=== PATIENT | male | born 1975 | race Caucasian/White ===

== ENCOUNTER 2020-12-21 08:42 | Emergency (ER) | payer OTHER, SELFPAY ==
[2020-12-21 08:52] VITALS: BP 139/83; PULSE 95; RESP 19; TEMP 37.1; O2SAT 96; BMI 30.7
--- NOTE | 2020-12-21 09:01 | W.ED.NAVMDI ---
Documented by User: ELIDIA Jade 12/21/20 11:07 HPI - Nausea/Vomiting/Diarrhea General: Chief complaint: Abdominal Pain Stated complaint: STOMACH PAINS/DIARRHEA Time Seen by Provider: 12/21/20 08:45 History of Present Illness: HPI Narrative: Patient is a 45-year-old male comes to the ED with abdominal cramps and diarrhea. Symptoms started a little over 2 weeks ago. Patient says he had some bad food poisoning, and for about 5 days he had nausea vomiting and diarrhea. Since recovering from food poisoning incident he says he has had abdominal cramping pain and watery diarrhea. He has approximately 10-12 watery diarrhea BMs a day for the past 2 weeks. He denies any blood in the stool. He endorses having a lot of abdominal cramping pain that does get relieved after he has a bowel movement. Abdominal cramping is generalized and he has no localized abdominal pain says every time he eats something that goes right the room and he has a bowel movement immediately following. Denies any nausea, vomiting, fever, chills. Associated nausea: No Associated symtoms: Denies change in vision, chest pain, dysuria, fatigue, headache(s), nausea or palpitations Review of Systems Const: Denies: fever(s), chills or fatigue Eyes: Denies: change in vision or eye discomfort ENMT: Denies: throat pain, odynophagia, nasal discharge or nasal congestion Card: Denies: chest pain, palpitations, edema, swelling of feet/ankles, dyspnea on exertion or orthopnea Resp: Denies: dyspnea, productive cough or non-productive cough GI: Reports: abdominal pain (Abdominal cramping pain) and diarrhea; Denies: nausea, vomiting, constipation or hematochezia : Denies: flank pain, difficulty urinating, dysuria or hematuria Musc: Denies: neck pain, back pain or extremity swelling Skin/Breast: Denies: rash or new lesions Neuro: Denies: headache(s), numbness in extremities or weakness in extremities Physical Exam Const: COMMON NORMALS: no acute distress, patient oriented x3 and alert GENERAL APPEARANCE: cooperative and comfortable HENMT: COMMON NORMALS: normocephalic HEAD & SCALP: normocephalic MOUTH: Normal oral and palatal mucosa present THROAT: posterior oropharynx normal and uvula midline Eye: COMMON NORMALS: Equal, round and reactive pupils present PUPIL: Yes Equal, round and reactive pupils present Neck/C-Spine: COMMON NORMALS: supple GENERAL: Yes normal visual inspection Resp: COMMON NORMALS: normal respiratory effort, No retractions, No use of accessory muscles and clear to auscultation bilaterally AUSCULTATION: clear to auscultation bilaterally Cardio: COMMON NORMALS: regular rate, regular rhythm, S1 normal heart sound present, S2 normal heart sound present, No gallops present (Cardio), No clicks present (Cardio), No murmurs present (Cardio) and Peripheral pulses 2+ throughout RATE: regular rate RHYTHM: regular rhythm HEART SOUNDS: S1 normal heart sound present and S2 normal heart sound present PERIPHERAL PULSES: Peripheral pulses 2+ throughout GI: COMMON NORMALS: Soft to palpation, non-tender and no masses INSPECTION: Yes normal to inspection AUSCULTATION: Yes Hyperactive bowel sounds present PALPATION: Yes Soft to palpation : COMMON NORMALS: Yes no CVA tenderness BLADDER/KIDNEY EXAM: Yes no CVA tenderness Back/Pelvis: COMMON NORMALS: no CVA tenderness Extremity: COMMON NORMALS: normal to inspection Neuro: COMMON NORMALS: patient oriented x3 and moves all extremities SENSORIUM/ORIENTATION: Yes alert Skin: GENERAL SKIN EXAM: dry skin Course Vital Signs: Vital signs: Vital Signs Temperature 98.7 F 12/21/20 08:52 Pulse Rate 92 12/21/20 10:52 Respiratory Rate 16 12/21/20 10:52 Blood Pressure 105/71 12/21/20 10:52 Pulse Oximetry 95 12/21/20 10:52 MDM - Nausea/Vomiting/Diarrhea MDM Narrative: Medical decision making narrative: Patient is a 45-year-old male comes to the ED with abdominal cramping and diarrhea. Symptoms been going on for the past 2 weeks. Denies any fever, chills, nausea/vomiting. Patient appears in no acute distress or pain. He has hyperactive bowel sounds of the rest of exam is benign. White blood cell count 12.2, sodium level 129, blood glucose 255. Sodium correction level in light of hyperglycemia actually around 131-133. CT of abdomen pelvis showed colitis. Patient was given 1 L of IV fluids while here in the ED. He was also given p.o. Cipro and Flagyl here in the ED. He was diagnosed with colitis and hyponatremia. discharged home with a prescription for Flagyl, Cipro and dicyclomine. told to follow-up with his PCP in 7 to 10 days for reevaluation and to recheck sodium levels. Lab Data: Attestation: I reviewed the patient's lab results. Labs: Lab Results 12/21/20 12/21/20 12/21/20 08:58 08:58 10:09 WBC 12.2 10^3/uL H 10 ^3/uL (4.0-10.0) RBC 5.47 10^6/uL H 10 ^6/uL (4.1-5.3) Hgb 16.1 g/dL g/dL (11.7-16.6) Hct 47.5 % % (42.0-52.0) MCV 86.8 fl fl (80-94) MCH 29.4 pg pg (28.0-34.0) MCHC 33.9 g/dL g/dL (30.0-36.0) RDW 12.5 % % (12.1-15.1) Plt Count 313 10^3/cmm 10^3 /cmm (130-400) MPV 9.7 fL fL (7.4-10.4) Neut % (Auto) 66.8 % % Lymph % (Auto) 19.6 % % [place] % (Auto) 12.2 % % Eos % (Auto) 0.2 % % Baso % (Auto) 0.5 % % Neut # (Auto) 8.15 10^3/uL H 10 ^3/uL (1.8-7.7) Lymph # (Auto) 2.4 10^3/uL 10^3/ uL (0.8-4.8) [place] # (Auto) 1.5 10^3/uL H 10^ 3/uL (0.2-0.9) Eos # (Auto) 0.0 10^3/uL 10^3/ uL (0.0-0.8) Baso # (Auto) 0.1 10^3/uL 10^3/ uL (0.0-0.1) Nucleated RBC % (a uto) 0 % % Nucleated RBCs # 0.0 /100WBC /100W BC Sodium 129 mmol/L L mmol /L (136-145) Potassium 3.4 mmol/L L mmol /L (3.5-5.1) Chloride 90 mmol/L L mmol/ L (98-107) Carbon Dioxide 27 mmol/L mmol/L (22-29) Anion Gap 15.4 (5-19) BUN 5 mg/dL L mg/dL (6-20) Creatinine 0.7 mg/dL mg/dL (0.7-1.2) GFR Calculation 122.0 mL/min mL/m in (90-130) Glucose 255 mg/dL H mg/dL (65-115) Calculated Osmolal ity 274 mOsm/kg L mOs m/kg (285-295) Calcium 8.9 mg/dL mg/dL (8.5-10.5) Total Bilirubin 0.6 mg/dL mg/dL (0.15-1.2) AST 19 U/L U/L (0-40) ALT 22 U/L U/L (0-41) Alkaline Phosphata se 115 IU/L IU/L (40-130) Total Protein 7.2 g/dL g/dL (6.6-8.7) Albumin 3.5 g/dL g/dL (3.5-5.2) Globulin 3.7 g/dL g/dL (1.3-4.6) Lipase 54 U/L U/L (13-60) Urine Color Yellow (Yellow) Urine Appearance Clear (CLEAR) Urine pH 7 (5-7) Ur Specific Gravit y 1.005 (1.005-1.030) Urine Protein Neg (Negative) Urine Glucose (UA) 2+ H (Normal) Urine Ketones Negative (Negative) Urine Blood 3+ H (Negative) Urine Nitrate Negative (Negative) Urine Bilirubin Neg (Negative) Urine Urobilinogen Norm mg/dL mg/dL (Negative) Ur Leukocyte Medina ase Negative (Negative) Urine RBC 5-10 /hpf H /hpf (0-2) Urine WBC None /hpf /hpf (0-5) Ur Squamous Epith Cells None /hpf /hpf (0-5) Amorphous Sediment Not Reportable Urine Bacteria None /hpf /hpf (NONE) Imaging Data^: CT Abd/Pel: Attestation: I personally reviewed and interpreted this imaging study as follows: Radiologist's impression: [address] [place] [address] CT Scan Report Signed Patient: Javier Davis Unit #: [id number] : [id number] Age/Sex: 45 / M ADM Date: 12/21/20 Loc: ER Room/Bed: Attending Dr: Ordering Provider/Ordering MD: Shant Mcfadden Date of Service: 12/21/20 Procedure(s): CT abdomen pelvis w con* [id number] Accession Number(s): [id number] Report Number: [id number] PROCEDURE INFORMATION: Exam: CT Abdomen And Pelvis With Contrast Exam date and time: 12/21/2020 9:02 AM Age: 45 years old Clinical indication: Abdominal pain; Additional info: Watery diarrhea for 2 weeks, abdominal cramping TECHNIQUE: Imaging protocol: Computed tomography of the abdomen and pelvis with contrast. Total images: 240 Radiation optimization: All CT scans at this facility use at least one of these dose optimization techniques: automated exposure control; mA and/or kV adjustment per patient size (includes targeted exams where dose is matched to clinical indication); or iterative reconstruction. Contrast material: OMNI 300; Contrast volume: 95 ml; Contrast route: INTRAVENOUS (IV); COMPARISON: CT abdomen pelvis w con* [id number] 06/16/2016 11:12 AM RADIATION DOSE METRICS: Total DLP (mGy-cm): 1667.37 FINDINGS: Diaphragm: A small hiatal hernia is present. Liver: Normal. No mass. Gallbladder and bile ducts: Normal. No calcified stones. No ductal dilation. Pancreas: Normal. No ductal dilation. Spleen: Normal. No splenomegaly. Adrenal glands: Normal. No mass. Kidneys and ureters: Normal. No hydronephrosis. Stomach and bowel: Colonic wall thickening with adjacent interstitial fatty stranding most pronounced in the ascending colon and proximal transverse colon and suggestive of colitis either infectious or inflammatory. Appendix: No evidence of appendicitis. Intraperitoneal space: Unremarkable. No free air. No significant fluid collection. Vasculature: Mild atherosclerotic disease is evident. Lymph nodes: Nonspecific prominent mesenteric lymph nodes could be subtle evidence of infectious or inflammatory enteritis or adenitis. Urinary bladder: Unremarkable as visualized. Reproductive: Unremarkable as visualized. Bones/joints: Bridging osteophytes are seen spanning the SI joints bilaterally. Soft tissues: Unremarkable. CT/CT abdomen pelvis w con* [id number] IMPRESSION: 1. Colonic wall thickening with adjacent interstitial fatty stranding most pronounced in the ascending colon and proximal transverse colon and suggestive of colitis either infectious or inflammatory. 2. Nonspecific prominent mesenteric lymph nodes could be subtle evidence of infectious or inflammatory enteritis or adenitis. Radiation Dose CTDIVOL = (mGy): DLP = 1667.37 (mGy-cm) Dictated By: Jacob Allred MD Signed By: Jacob Allred MD Signed Date/Time: 12/21/20 1018 DD/ 1 Discharge Plan Discharge Patient Disposition: Home Clinical Impression: Colitis, Hyponatremia Condition: Stable Prescriptions: New dicyclomine 20 mg tablet 20 mg PO QID PRN (Reason: abdominal cramping and diarrhea) Qty: 30 RF: 0 Discharge Orders: Discharge ED (Routine); Ordered 12/21/20 Ordered By: Shant Mcfadden Referrals: Ana Hooker FNP [Primary Care Provider] - Discharge Diet: Regular Discharge Activity: Resume usual activity Patient Instructions: Colitis (ED) Activity Restrictions/Additional Instructions: Follow-up with medical provider as directed in 7 to 10 days for reevaluation. Have your PCP recheck your sodium levels at your next visit. Take medications as prescribed. Return to the ER or your medical provider if condition worsens. Please read and understand discharge instructions. Thank you for choosing [facility] for your healthcare needs today. Please realize this is an emergency room and that we are providing you with a medical screening exam and this may not be complete and all inclusive of all the testing and or work up that you may need to determine your ailment or severity of your illness. It is very important that you follow up as instructed or that you return to the Emergency Department should you have concerns or if your condition changes or worsens in any way. Coding Level of Care Code ED District Branch Manager for Chg Fwd Exam Comprehensive Documented by User: Douglas Pantoja MD 12/28/20 13:36 HPI - Nausea/Vomiting/Diarrhea General: Chief complaint: Abdominal Pain Stated complaint: STOMACH PAINS/DIARRHEA Time Seen by Provider: 12/21/20 08:45 Course Vital Signs: Vital signs: Vital Signs Temperature 98.7 F 12/21/20 08:52 Pulse Rate 92 12/21/20 10:52 Respiratory Rate 16 12/21/20 10:52 Blood Pressure 105/71 12/21/20 10:52 Pulse Oximetry 95 12/21/20 10:52 MDM - Nausea/Vomiting/Diarrhea Lab Data: Labs: Lab Results 12/21/20 12/21/20 12/21/20 08:58 08:58 10:09 WBC 12.2 10^3/uL H 10 ^3/uL (4.0-10.0) RBC 5.47 10^6/uL H 10 ^6/uL (4.1-5.3) Hgb 16.1 g/dL g/dL (11.7-16.6) Hct 47.5 % % (42.0-52.0) MCV 86.8 fl fl (80-94) MCH 29.4 pg pg (28.0-34.0) MCHC 33.9 g/dL g/dL (30.0-36.0) RDW 12.5 % % (12.1-15.1) Plt Count 313 10^3/cmm 10^3 /cmm (130-400) MPV 9.7 fL fL (7.4-10.4) Neut % (Auto) 66.8 % % Lymph % (Auto) 19.6 % % [place] % (Auto) 12.2 % % Eos % (Auto) 0.2 % % Baso % (Auto) 0.5 % % Neut # (Auto) 8.15 10^3/uL H 10 ^3/uL (1.8-7.7) Lymph # (Auto) 2.4 10^3/uL 10^3/ uL (0.8-4.8) [place] # (Auto) 1.5 10^3/uL H 10^ 3/uL (0.2-0.9) Eos # (Auto) 0.0 10^3/uL 10^3/ uL (0.0-0.8) Baso # (Auto) 0.1 10^3/uL 10^3/ uL (0.0-0.1) Nucleated RBC % (a uto) 0 % % Nucleated RBCs # 0.0 /100WBC /100W BC Sodium 129 mmol/L L mmol /L (136-145) Potassium 3.4 mmol/L L mmol /L (3.5-5.1) Chloride 90 mmol/L L mmol/ L (98-107) Carbon Dioxide 27 mmol/L mmol/L (22-29) Anion Gap 15.4 (5-19) BUN 5 mg/dL L mg/dL (6-20) Creatinine 0.7 mg/dL mg/dL (0.7-1.2) GFR Calculation 122.0 mL/min mL/m in (90-130) Glucose 255 mg/dL H mg/dL (65-115) Calculated Osmolal ity 274 mOsm/kg L mOs m/kg (285-295) Calcium 8.9 mg/dL mg/dL (8.5-10.5) Total Bilirubin 0.6 mg/dL mg/dL (0.15-1.2) AST 19 U/L U/L (0-40) ALT 22 U/L U/L (0-41) Alkaline Phosphata se 115 IU/L IU/L (40-130) Total Protein 7.2 g/dL g/dL (6.6-8.7) Albumin 3.5 g/dL g/dL (3.5-5.2) Globulin 3.7 g/dL g/dL (1.3-4.6) Lipase 54 U/L U/L (13-60) Urine Color Yellow (Yellow) Urine Appearance Clear (CLEAR) Urine pH 7 (5-7) Ur Specific Gravit y 1.005 (1.005-1.030) Urine Protein Neg (Negative) Urine Glucose (UA) 2+ H (Normal) Urine Ketones Negative (Negative) Urine Blood 3+ H (Negative) Urine Nitrate Negative (Negative) Urine Bilirubin Neg (Negative) Urine Urobilinogen Norm mg/dL mg/dL (Negative) Ur Leukocyte Medina ase Negative (Negative) Urine RBC 5-10 /hpf H /hpf (0-2) Urine WBC None /hpf /hpf (0-5) Ur Squamous Epith Cells None /hpf /hpf (0-5) Amorphous Sediment Not Reportable Urine Bacteria None /hpf /hpf (NONE) Discharge Plan Discharge Patient Disposition: Home Clinical Impression: Colitis, Hyponatremia Condition: Stable Prescriptions: New dicyclomine 20 mg tablet 20 mg PO QID PRN (Reason: abdominal cramping and diarrhea) Qty: 30 RF: 0 Discharge Orders: Discharge ED (Routine); Ordered 12/21/20 Ordered By: Shant Mcfadden Referrals: Ana Hooker FNP [Primary Care Provider] - Discharge Diet: Regular Discharge Activity: Resume usual activity Patient Instructions: Colitis (ED) Activity Restrictions/Additional Instructions: Follow-up with medical provider as directed in 7 to 10 days for reevaluation. Have your PCP recheck your sodium levels at your next visit. Take medications as prescribed. Return to the ER or your medical provider if condition worsens. Please read and understand discharge instructions. Thank you for choosing [facility] for your healthcare needs today. Please realize this is an emergency room and that we are providing you with a medical screening exam and this may not be complete and all inclusive of all the testing and or work up that you may need to determine your ailment or severity of your illness. It is very important that you follow up as instructed or that you return to the Emergency Department should you have concerns or if your condition changes or worsens in any way. Coding Level of Care Code ED District Branch Manager for [facility] Fwde[facility] Exam Comprehensive
[2020-12-21 09:02] LABS: Basophils # 0.1 10^3/uL (0.0-0.1); Basophils % 0.5 %; Eosinophils % 0.2 %; Hematocrit 47.5 % (42.0-52.0); Hemoglobin 16.1 g/dL (11.7-16.6); Lymphocytes # 2.4 10^3/uL (0.8-4.8); Lymphocytes % 19.6 %; Mean Corpuscular HGB Conc 33.9 g/dL (30.0-36.0); Mean Corpuscular Hemoglobin 29.4 pg (28.0-34.0); Mean Corpuscular Volume 86.8 fl (80-94); Mean Platelet Volume 9.7 fL (7.4-10.4); Monocytes # 1.5 10^3/uL (0.2-0.9); Monocytes % 12.2 %; Neutrophils # 8.15 10^3/uL (1.8-7.7); Neutrophils % 66.8 %; Nucleated Red Blood Cells % 0 %; Platelet Count 313 10^3/cmm (130-400); Red Blood Count 5.47 10^6/uL (4.1-5.3); Red Cell Distribution Width 12.5 % (12.1-15.1); White Blood Count 12.2 10^3/uL (4.0-10.0)
[2020-12-21 09:08] VITALS: BP 124/85; PULSE 91; RESP 18; O2SAT 94
[2020-12-21] MEDS: sodium chloride 0.9% 1,000 ML 999 ML IV (09:14)
[2020-12-21 09:29] LABS: Alanine Aminotransferase 22 U/L (0-41); Albumin Level 3.5 g/dL (3.5-5.2); Alkaline Phosphatase 115 IU/L (40-130); Anion Gap 15.4 (5-19); Aspartate Amino Transferase 19 U/L (0-40); Blood Urea Nitrogen 5 mg/dL (6-20); Calcium 8.9 mg/dL (8.5-10.5); Carbon Dioxide 27 mmol/L (22-29); Chloride 90 mmol/L (98-107); Globulin 3.7 g/dL (1.3-4.6); Glucose 255 mg/dL (65-115); Lipase 54 U/L (13-60); Osmolality Calculated 274 mOsm/kg (285-295); Potassium 3.4 mmol/L (3.5-5.1); Sodium 129 mmol/L (136-145); Total Bilirubin 0.6 mg/dL (0.15-1.2); Total Protein 7.2 g/dL (6.6-8.7)
[2020-12-21] MEDS: iohexol 300 mg/mL 100 mL Btl IV (09:42)
[2020-12-21 10:25] VITALS: BP 123/81; PULSE 92; RESP 16; O2SAT 94
[2020-12-21] MEDS: ciprofloxacin 500 mg Tablet PO (10:36)
[2020-12-21] MEDS: metroNIDAZOLE 500 MG Tablet PO (10:36)
[2020-12-21 10:48] LABS: Add Urine Microscopic? YES; Bilirubin Urine Neg (Negative); Blood Urine 3+ (Negative); Glucose Urine UA 2+ (Normal); Ketones Urine Negative (Negative); Leukocyte Esterase Urine Negative (Negative); Nitrate Urine Negative (Negative); Protein Urine Neg (Negative); Specific Gravity, Urine 1.005 (1.005-1.030); Urine Appearance Clear (CLEAR); Urine Color Yellow (Yellow); Urobilinogen Urine Norm (Negative); pH Urine 7 (5-7)
[2020-12-21 10:52] VITALS: BP 105/71; PULSE 92; RESP 16; O2SAT 95
[2020-12-21 10:53] LABS: Add Urine Culture? No
== END 2020-12-21 10:49 | disposition home or self-care (01) ==
PROVIDERS: Emergency Provider Physician Assistant; PCP Nurse Practitioner Family
DX: K52.9 Noninfective gastroenteritis and colitis, unspecified (principal); E87.1 Hypo-osmolality and hyponatremia
CPT/HCPCS: 74177; 80053; 81001; 82274; 83690; 85025; 87506; 96360; 99283; J7030; Q9967

== ENCOUNTER 2024-02-29 08:20 | Outpatient (CLI) | payer OTHER, SELFPAY ==
[2024-02-29 09:56] LABS: Estmated Average Glucose 212
== END 2024-02-29 08:21 | disposition home or self-care (01) ==
PROVIDERS: PCP Nurse Practitioner Family; Visit Provider Nurse Practitioner Family
DX: R73.9 Hyperglycemia, unspecified (principal)
CPT/HCPCS: 36415; 83036